=== PATIENT | female | born 1990 | race Caucasian/White ===

== ENCOUNTER 2016-12-17 09:14 | Emergency (ER) | payer OTHER ==
[~2016-12-17] VITALS: Ht 154.9 cm; Wt 81.6 kg
--- NOTE | 2016-12-17 09:35 | ED GI/GU/ABDOMINAL COMPLAINT ---
History of Present Illness General Chief Complaint: General Adult Stated Complaint: STD CHECK Source: patient Exam Limitations: no limitations Vital Signs & Intake/Output Vital Signs & Intake/Output Vital Signs Date Time Temp Pulse Resp B/P Pulse O2 O2 Flow FiO2 Ox Delivery Rate 12/17 0916 97.4 96 18 150/88 98 Room Air Allergies Coded Allergies: amoxicillin (Severe, SEVERE REACTION A BABY PER MOM 11/24/15) Penicillins (UNKNOWN 11/24/15) Reconcile Medications Aripiprazole (Abilify) 5 MG TABLET 1 TAB PO DAILY MENTAL HEALTH (Reported) Clindamycin HCl 300 MG CAPSULE 1 CAP PO BID BACTERIAL VAGINOSIS Triage Note: STATES THAT SHE JUST RETURNED FROM [facility] AND HAD UNPROTECTED SEX AND FOR THE PAST 2 MONTHS SHE HAS BEEN HAVING CLEAR DISCHARGE/ITCHING AND FOUL ODOR FROM VAGINAL AREA Triage Nurses Notes Reviewed? yes ? N Is pt currently ? No Onset: Gradual Duration: waxing and waning, 2 MONTHS Timing: recent history Location: vaginal Activities at Onset: none No Modifying Factors: none Associated Symptoms: dysuria, DISCHARGE, VAGINAL ITCHING HPI: 25 year old female reports vaginal itching, foul smelling discharge x 2 months. Unprotected intercourse 1 month ago. Reports blood in the urine a few days ago, but denies dysuria. Mirena placed 4 years ago. She does not have a brooch and bracelet maker in the area. Patient wanted a checkup and came to the ED. Patient presents for STD check. Past History Travel History Traveled to [place] past 21 day No Medical History Any Pertinent Medical History? 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 No Review of Systems Review of Systems Constitutional: Denies: chills, fever. EENTM: Reports: no symptoms. Respiratory: Denies: cough, short of breath. Cardiovascular: Denies: chest pain, palpitations. GI: Denies: abdominal pain, nausea, changes in stool. Genitourinary: Reports: see HPI (ITCHING), discharge, dysuria, frequency. Musculoskeletal: Reports: no symptoms. Skin: Reports: no symptoms. Neurological/Psychological: Reports: no symptoms. Hematologic/Endocrine: Reports: polyuria. Denies: bruising, bleeding, polydipsia. Immunologic/Allergic: Reports: no symptoms. All Other Systems: Reviewed and Negative Physical Exam Physical Exam General Appearance: alert, awake Head: atraumatic Eyes: Bilateral: PERRL, EOMI. Ears, Nose, Throat, Mouth: hearing grossly normal, moist mucous membrane Neck: normal inspection, supple, full range of motion Respiratory: normal breath sounds, chest non-tender, no respiratory distress Cardiovascular: edema Peripheral Pulses: 2+ radial (R), 2+ radial (L) Gastrointestinal: normal bowel sounds, soft, non-tender Pelvic: NO CERVICAL LESIONS, MILD MALODORUS VAGINAL DISCHARGE Extremities: normal range of motion Neurologic/Psych: no motor/sensory deficits, awake, alert, oriented x 3 Skin: intact, normal color, warm/dry Core Measures ACS in differential dx? No Severe Sepsis Present: No Septic Shock Present: No Progress Differential Diagnosis: intrauterine , ovarian cyst, ovarian torsion, PID/cervicitis, UTI/pyelo Plan of Care: Orders Procedure Date/time Status CULTURE,URINE 12/17 934 Active TRICHOMONAS 12/17 934 Complete POTASSIUM HYDROXIDE (MELY) 12/17 934 Complete GENITAL CULTURE 12/17 934 Active CHLAMYDIA-GC DNA PROBE 12/17 934 Active URINE 12/17 934 Complete URINALYSIS 12/17 934 Complete Laboratory Tests 12/17/16 1037: Urine Color YEL, Urine Clarity HAZY H, Urine pH 6.5, Ur Specific [place] 1.020, Urine Protein NEG, Urine Ketones NEG, Urine Nitrite NEG, Urine Bilirubin NEG, Urine Urobilinogen 0.2, Ur Leukocyte Esterase NEG, Ur Microscopic SEDIMENT EXAMINED, Urine RBC RARE, Ur Epithelial Cells FEW, Urine Hemoglobin NEG, Urine Glucose NEG, Urine Test NEGATIVE Microbiology 12/17 1037 URINE ROUT: Urine Culture - RECD 12/17 1013 GENITAL: GC DNA Probe - RECD 12/17 1013 GENITAL: Chlamydia DNA Probe (JOSE) - RECD 12/17 1013 GENITAL: MELY Preparation - COMP 12/17 1013 GENITAL: Trichomonas Preparation - COMP 12/17 1013 GENITAL: Genital Culture - RECD Rocephin, and azithromycin ordered. Patient prefers to be treated empirically for STDs. Prescription for clindamycin sent in to the pharmacy. I gave her a referral for primary OB care for Pap smears and continued follow-up. (TONE SOLIS,AGATA) Initial ED EKG: none Departure Departure Time of Disposition: 1114 Disposition: HOME OR SELF CARE Condition: Stable Clinical Impression Primary Impression: STD (female) Secondary Impressions: BV (bacterial vaginosis) Referrals: PATIENT HAS NO PRIMARY CARE DR (PCP/Family) CURTIS COTE MD Additional Instructions: Take the clindamycin as directed. Please follow-up with the [employer]RIBUTION [employer]ELD [employer] doctor listed. Return to the ER for any changing or worsening symptoms. Departure Forms: Customer Survey General Discharge Information Prescriptions: Current Visit Scripts Clindamycin HCl 1 CAP PO BID #[id number] CAP
[2016-12-17] MEDS ORDERED: ABILIFY5 M1 PO (09:43)
[2016-12-17] MEDS ORDERED: CLINDAMYCIN HC300 M1 PO (10:12)
[2016-12-17 11:26] VITALS: BP 136/84
== END 2016-12-17 11:27 ==
LOC: ERH 09:14
DX: N76.0 Acute vaginitis (principal); A64 Unspecified sexually transmitted disease
CPT/HCPCS: 87070; 81001; 81025; 87086; 87491; 87591; 96372; J0696